=== PATIENT | male | born 1980 | race American Indian/Alaskan Native ===

== ENCOUNTER 2018-01-07 15:36 | Inpatient (IN) | payer MEDICARE, MEDICAID ==
[2018-01-07] VITALS (16 sets, daily range): BP systolic 107–147; BP diastolic 52–87
[~2018-01-07] VITALS: Ht 185.4 cm; Wt 110.9 kg
[2018-01-07] MEDS ORDERED: normal saline 1000ML IV soln IV ONE (15:45)
[2018-01-07] MEDS ORDERED: ondansetron/PF 4mg/2ml inj IV ONE ×2 (15:45→16:35)
[2018-01-07] MEDS ORDERED: normal saline 1000ML IV soln IVB ONE ×2 (15:45→16:35)
[2018-01-07 16:16] LABS: BASOPHILS % (AUTO) 0.2 % (0-1); EOSINOPHILS % (AUTO) 0 % (0-6); HEMATOCRIT 39.1 % (42.0-52.0); HEMOGLOBIN 13.7 g/dl (14.0-17.9); LYMPHOCYTES # (AUTO) 1.4 X10'3 (1.1-4.8); LYMPHOCYTES % (AUTO) 12.1 % (21-51); MEAN CORPUSCULAR HEMOGLOBIN 31.3 PG (27.0-31.0); MEAN CORPUSCULAR VOLUME 89.4 FL (78-98); MONOCYTES # (AUTO) 0.6 X10'3 (0-0.9); MONOCYTES % (AUTO) 5.6 % (2-12); NEUTROPHILS # (AUTO) 9.2 X10'3 (1.8-7.7); NEUTROPHILS % (AUTO) 82.1 % (42-75); PLATELET COUNT 182 X10'3 (140-440); RED BLOOD COUNT 4.37 X10'6 (4.70-6.10); RED CELL DISTRIBUTION WIDTH 13.1 % (11.5-14.5); WHITE BLOOD COUNT 11.2 X10'3 (4.5-11.0)
[2018-01-07 16:35] LABS: ALANINE AMINOTRANSFERASE 29 U/L (12-78); ALBUMIN 3.2 G/DL (3.4-5.0); ALBUMIN/GLOBULIN RATIO 0.7 (1.1-1.5); ALKALINE PHOSPHATASE 44 IU/L (46-116); ANION GAP 11 (8-16); ASPARTATE AMINO TRANSFERASE 18 U/L (10-37); BILIRUBIN,TOTAL 2.6 MG/DL (0.1-1.0); BLOOD UREA NITROGEN 11 MG/DL (7-18); BUN/CREATININE RATIO 8.4 (5.4-32.0); CALCIUM 9.1 MG/DL (8.5-10.1); CHLORIDE 90 MMOL/L (99-107); CREATININE 1.31 MG/DL (0.60-1.10); ETHANOL < 0.010 GM/DL (0.0-0.010); GLUCOSE 129 MG/DL (70-104); LIPASE 94 U/L (73-393); SODIUM 128 MMOL/L (135-145); TOTAL CARBON DIOXIDE 27.4 MMOL/L (24-32); TOTAL PROTEIN 7.9 G/DL (6.4-8.2); eGFR 61 ML/MIN
[2018-01-07 16:39] LABS: POTASSIUM 2.8 MMOL/L (3.5-5.1)
[2018-01-07] MEDS ORDERED: potassium Cl oral solution 20 MEQ/15 ML PO ONE (16:45)
[2018-01-07 17:00] LABS: CLARITY,URINE CLOUDY (Clear); GLUCOSE, URINE 100 mg/dl (Neg); KETONES,URINE TRACE mg/dl (Neg); LEUKOCYTE ESTERASE ,URINE NEGATIVE (Neg); NITRITES, URINE POSITIVE (Neg); OCCULT BLOOD,URINE MODERATE (Neg); PROTEIN,URINE >=300 mg/dl (Neg)
[2018-01-07 17:01] LABS: COLOR,URINE AMBER (Yellow); UA COLLECTION TYPE URINAL
[2018-01-07 17:10] LABS: BACTERIA,URINE 2+ /HPF (Neg)
[2018-01-07 17:11] LABS: COARSE GRANULAR CAST >30 /LPF (NEGATIVE)
[2018-01-07 17:13] LABS: RBC,URINE 0-2 /HPF (0-2)
[2018-01-07 17:14] LABS: SQUAMOUS EPITHELIAL CELL,UR FEW /LPF (FEW)
[2018-01-07 17:15] LABS: URINE AMPHETAMINE SCREEN NEGATIVE (Neg); URINE BARBITUATE SCREEN NEGATIVE (Neg); URINE BENZODIAZEPINES SCREEN NEGATIVE (Neg); URINE CANNABINOID SCREEN POSITIVE (Neg); URINE COCAINE SCREEN NEGATIVE (Neg); URINE METHADONE SCREEN NEGATIVE (Neg); URINE OPIATE SCREEN POSITIVE (Neg); URINE PHENCYCLIDINE SCREEN NEGATIVE (Neg)
[2018-01-07] MEDS ORDERED: CefTRIAXone 2gm/D5W 50ml 50 ML IV ONE ×2 (17:35)
[2018-01-07] MEDS ORDERED: cefepime 1GM/NS ADD-VANTAGE 100 ML IV SCH (17:35)
[2018-01-07] MEDS ORDERED: levoFLOXACIN-Levaquin 750MG/D5 150 ML IV ONE (17:35)
[2018-01-07] MEDS ORDERED: piperacillin/tazo 3.375gm/50ml 50 ML IV ONE (17:50)
[2018-01-07] MEDS ORDERED: ondansetron/PF 4mg/2ml inj IV PRN ×2 (18:00→19:35)
[2018-01-07] MEDS: K and/or MAG REPLACEMENT MC SCH (18:00)
[2018-01-07] MEDS ORDERED: acetaminophen 325mg tablet PO PRN (18:00)
[2018-01-07] MEDS ORDERED: magnesium 4gm in 100ml NS 100 ML IV PRN (18:00)
[2018-01-07] MEDS ORDERED: magnesium hydroxide 30ml (MOM) UD suspension PO PRN (18:00)
[2018-01-07] MEDS ORDERED: HYDROcodone/acetaminophen 5mg/325mg tablet PO PRN (18:00)
[2018-01-07] MEDS ORDERED: potassium Cl 20 mEq SR tablet PO PRN (18:00)
[2018-01-07] MEDS ORDERED: magnesium 1gm/100ml D5W IVPB 100 ML IV PRN (18:00)
[2018-01-07] MEDS ORDERED: potassium Cl 40MEQ/NS 500ml 500 ML IV PRN (18:00)
[2018-01-07] MEDS ORDERED: mag hydrox/Alum hydrox/simeth 30ml oral suspension PO PRN (18:00)
[2018-01-07] MEDS ORDERED: morphine 4 MG/ML inj SYRINge IV PRN ×4 (18:00→19:35)
[2018-01-07] MEDS ORDERED: bisacodyl 10mg suppository rectal RC PRN (18:00)
[2018-01-07] MEDS ORDERED: ARIP15TA8 PO (18:02)
[2018-01-07] MEDS ORDERED: OXCA300T PO (18:02)
[2018-01-07] MEDS ORDERED: HYDR-3972 PO (18:02)
[2018-01-07] MEDS ORDERED: FLUV100T3 PO (18:02)
[2018-01-07] MEDS ORDERED: LORA2TAB PO (18:02)
[2018-01-07] MEDS ORDERED: BACL20TA PO (18:02)
[2018-01-07] MEDS ORDERED: LORazepam 2 mg/ml vial IV PRN (18:05)
[2018-01-07] MEDS ORDERED: non-formulary drug (Lorazepam 1 TAB) PO PRN (18:05)
[2018-01-07] MEDS ORDERED: BUPIVAcaine/PF 2.5mg/ml (0.25%) 10ml vial ONE (18:14)
[2018-01-07] MEDS ORDERED: LIDOcaine 1% 30ml preserv. free vial ONE (18:14)
[2018-01-07] MEDS ORDERED: LORazepam 1 MG tablet PO PRN (18:45)
[2018-01-07] MEDS ORDERED: baclofen 10mg tablet PO PRN (18:50)
[2018-01-07] MEDS ORDERED: sevoflurane 250ml liquid IH ONE (18:59)
[2018-01-07] MEDS ORDERED: midazolam 2 mg/2 ml injection ONE (19:05)
[2018-01-07] MEDS ORDERED: propofol inj 20 ML IV ONE (19:05)
[2018-01-07] MEDS ORDERED: fentaNYL /PF 50mcg/ml 5ml ampule ONE (19:05)
[2018-01-07] MEDS ORDERED: rocuronium 10mg/ml inj IV ONE (19:06)
[2018-01-07] MEDS ORDERED: ringers solution, lacted 1,000 ML IV SCH (19:31)
[2018-01-07] MEDS ORDERED: proCHLORperazine 10 MG/2 ml inj IV PRN (19:35)
[2018-01-07] MEDS ORDERED: meperidine/PF 25mg/ml syringe IV PRN ×3 (19:35)
[2018-01-07] MEDS ORDERED: ePHEDrine 50MG/ML INJ. ONE (19:36)
[2018-01-07] MEDS ORDERED: non-formulary drug (Oxcarbazepine 1 TAB) PO SCH (20:00)
[2018-01-07] MEDS ORDERED: FLUVOXAMINE MALEATE 50 MG PO SCH (20:00)
[2018-01-07] MEDS ORDERED: neostigmine methylsulfate 1 MG/ML 10ml vial ONE (20:18)
[2018-01-07] MEDS ORDERED: glycopyrrolate 0.2mg/ml inj ONE (20:19)
[2018-01-07] MEDS ORDERED: naloxone 0.4 mg/ml inj IV PRN (20:20)
[2018-01-07] MEDS ORDERED: CADD PCA waste documentation MC PRN (20:20)
[2018-01-07] MEDS ORDERED: non-formulary drug (Baclofen 1 TAB) PO SCH (21:00)
[2018-01-07] MEDS: HYDROmorphone/NS 1 mg/ml CADD 50 ML IV SCH ×3 (21:00→23:00)
[2018-01-07 21:30] LABS: ISTAT CREATININE 1.1 mg/dL (0.8-1.3); ISTAT HGB 10.9 g/dl (14.0-18.0); ISTAT IONIZED CALCIUM 1.07 mmol/L (1.03-1.32); ISTAT K 2.9 mmol/L (3.5-5.1); POC BUN/CREATININE RATIO 9.1 (5.4-32.0)
[2018-01-07] MEDS: potassium Cl 40MEQ/NS 500ml 500 ML IV PRN (22:11)
[2018-01-07 22:33] LABS: ALBUMIN 2.3 G/DL (3.4-5.0); ANION GAP 5 (8-16); BLOOD UREA NITROGEN 11 MG/DL (7-18); BUN/CREATININE RATIO 9.2 (5.4-32.0); CALCIUM 7.7 MG/DL (8.5-10.1); CHLORIDE 98 MMOL/L (99-107); GLUCOSE 111 MG/DL (70-104); SODIUM 133 MMOL/L (135-145); TOTAL CARBON DIOXIDE 29.8 MMOL/L (24-32); eGFR 67 ML/MIN
[2018-01-07 22:42] LABS: POTASSIUM 2.9 MMOL/L (3.5-5.1)
[2018-01-07] MEDS: potassium Cl 20mEq in NS 1,000 ML IV SCH (22:49)
[2018-01-07] MEDS: pantoprazole 40 MG vial IV SCH (23:30)
[2018-01-07] MEDS: fluvoxamine 25 MG tablet PO SCH (23:30)
[2018-01-07] MEDS: oxcarbazepine 150mg tablet PO SCH (23:31)
[2018-01-08] VITALS: BP 143/67
[2018-01-08 00:45] VITALS: BP 129/80
[2018-01-08] MEDS: HYDROmorphone/NS 1 mg/ml CADD 50 ML IV SCH ×12 (01:00→23:00)
[2018-01-08 01:45] VITALS: BP 126/78
[2018-01-08] MEDS: piperacillin/tazo 4.5gm/100ml 100 ML IV SCH ×2 (02:59→08:39)
[2018-01-08] MEDS: potassium Cl 20mEq in NS 1,000 ML IV SCH ×3 (03:59→19:21)
[2018-01-08] MEDS: potassium Cl 40MEQ/NS 500ml 500 ML IV PRN (04:09)
[2018-01-08 07:00] VITALS: BP 126/77
[2018-01-08] MEDS: K and/or MAG REPLACEMENT MC SCH (08:00)
[2018-01-08] MEDS ORDERED: non-formulary drug (Aripiprazole 1 TAB) PO SCH (08:00)
[2018-01-08] MEDS: pantoprazole 40 MG vial IV SCH (08:38)
[2018-01-08] MEDS: oxcarbazepine 150mg tablet PO SCH ×2 (08:39→19:23)
[2018-01-08] MEDS: aripiprazole 5mg tablet PO SCH (08:39)
[2018-01-08] MEDS: fluvoxamine 25 MG tablet PO SCH ×2 (08:39→19:22)
[2018-01-08 10:08] LABS: BASOPHILS % (AUTO) 0.2 % (0-1); EOSINOPHILS % (AUTO) 0.1 % (0-6); HEMATOCRIT 30.3 % (42.0-52.0); HEMOGLOBIN 10.5 g/dl (14.0-17.9); LYMPHOCYTES # (AUTO) 0.6 X10'3 (1.1-4.8); LYMPHOCYTES % (AUTO) 10.6 % (21-51); MEAN CORPUSCULAR HEMOGLOBIN 31.4 PG (27.0-31.0); MEAN CORPUSCULAR HGB CONC 34.7 % (33.0-36.5); MEAN CORPUSCULAR VOLUME 90.6 FL (78-98); MEAN PLATELET VOLUME 7.3 FL (7.4-10.4); MONOCYTES # (AUTO) 0.5 X10'3 (0-0.9); MONOCYTES % (AUTO) 7.4 % (2-12); NEUTROPHILS % (AUTO) 81.7 % (42-75); PLATELET COUNT 146 X10'3 (140-440); RED BLOOD COUNT 3.35 X10'6 (4.70-6.10); RED CELL DISTRIBUTION WIDTH 13.2 % (11.5-14.5); WHITE BLOOD COUNT 6.1 X10'3 (4.5-11.0)
[2018-01-08 10:23] LABS: ALANINE AMINOTRANSFERASE 57 U/L (12-78); ALBUMIN/GLOBULIN RATIO 0.6 (1.1-1.5); ALKALINE PHOSPHATASE 46 IU/L (46-116); ANION GAP 9 (8-16); ASPARTATE AMINO TRANSFERASE 66 U/L (10-37); BILIRUBIN,TOTAL 3.1 MG/DL (0.1-1.0); BLOOD UREA NITROGEN 7 MG/DL (7-18); BUN/CREATININE RATIO 7.1 (5.4-32.0); CALCIUM 7.4 MG/DL (8.5-10.1); CHLORIDE 95 MMOL/L (99-107); CREATININE 0.99 MG/DL (0.60-1.10); GLUCOSE 124 MG/DL (70-104); MAGNESIUM 1.4 MG/DL (1.5-2.4); POTASSIUM 3.1 MMOL/L (3.5-5.1); SODIUM 129 MMOL/L (135-145); TOTAL CARBON DIOXIDE 25.4 MMOL/L (24-32); TOTAL PROTEIN 5.6 G/DL (6.4-8.2); eGFR 84 ML/MIN
[2018-01-08] MEDS: magnesium Cl slow-release 64mg tablet PO PRN (10:49)
[2018-01-08] MEDS: potassium Cl 20 mEq SR tablet PO PRN ×2 (10:50→15:01)
[2018-01-08 11:00] VITALS: BP 120/84
[2018-01-08] MEDS: enoxaparin 40mg/0.4ml syringe SUBCUT SCH (15:40)
[2018-01-08] MEDS: levoFLOXACIN-Levaquin 500mg/D5 100 ML IV SCH (15:41)
[2018-01-08] MEDS: metroNIDAZOLE-Flagyl 500mg/NS 100 ML IV SCH (19:22)
[2018-01-08] MEDS: lactobacillus rhamnosus 10,000 MMU CELLS/CAPSULE PO SCH (19:23)
[2018-01-09] VITALS: BP 120/72
[2018-01-09] MEDS: HYDROmorphone/NS 1 mg/ml CADD 50 ML IV SCH ×6 (01:00→11:00)
[2018-01-09] MEDS: potassium Cl 20 mEq SR tablet PO PRN ×4 (01:02→21:57)
[2018-01-09] MEDS: magnesium Cl slow-release 64mg tablet PO PRN (01:02)
[2018-01-09 05:23] LABS: BASOPHILS % (AUTO) 0 % (0-1); EOSINOPHILS % (AUTO) 0.2 % (0-6); HEMATOCRIT 29.4 % (42.0-52.0); HEMOGLOBIN 10.1 g/dl (14.0-17.9); LYMPHOCYTES # (AUTO) 0.7 X10'3 (1.1-4.8); LYMPHOCYTES % (AUTO) 10.4 % (21-51); MEAN CORPUSCULAR HGB CONC 34.4 % (33.0-36.5); MEAN CORPUSCULAR VOLUME 90.1 FL (78-98); MEAN PLATELET VOLUME 7.6 FL (7.4-10.4); MONOCYTES # (AUTO) 0.5 X10'3 (0-0.9); MONOCYTES % (AUTO) 7.9 % (2-12); NEUTROPHILS # (AUTO) 5.3 X10'3 (1.8-7.7); NEUTROPHILS % (AUTO) 81.5 % (42-75); PLATELET COUNT 156 X10'3 (140-440); RED BLOOD COUNT 3.26 X10'6 (4.70-6.10); RED CELL DISTRIBUTION WIDTH 13.3 % (11.5-14.5); WHITE BLOOD COUNT 6.5 X10'3 (4.5-11.0)
[2018-01-09 05:46] LABS: ALANINE AMINOTRANSFERASE 59 U/L (12-78); ALBUMIN/GLOBULIN RATIO 0.5 (1.1-1.5); ALKALINE PHOSPHATASE 56 IU/L (46-116); ANION GAP 6 (8-16); ASPARTATE AMINO TRANSFERASE 42 U/L (10-37); BILIRUBIN,TOTAL 3.2 MG/DL (0.1-1.0); BLOOD UREA NITROGEN 5 MG/DL (7-18); CALCIUM 7.9 MG/DL (8.5-10.1); CHLORIDE 96 MMOL/L (99-107); CREATININE 0.83 MG/DL (0.60-1.10); GLUCOSE 96 MG/DL (70-104); MAGNESIUM 1.6 MG/DL (1.5-2.4); POTASSIUM 3.4 MMOL/L (3.5-5.1); SODIUM 132 MMOL/L (135-145); TOTAL CARBON DIOXIDE 29.9 MMOL/L (24-32); TOTAL PROTEIN 5.7 G/DL (6.4-8.2); eGFR > 90 ML/MIN
[2018-01-09 07:13] VITALS: BP 121/85
[2018-01-09] MEDS: pantoprazole 40 MG vial IV SCH (07:26)
[2018-01-09] MEDS: enoxaparin 40mg/0.4ml syringe SUBCUT SCH (07:27)
[2018-01-09] MEDS: oxcarbazepine 150mg tablet PO SCH ×2 (07:27→19:51)
[2018-01-09] MEDS: aripiprazole 5mg tablet PO SCH (07:28)
[2018-01-09] MEDS: lactobacillus rhamnosus 10,000 MMU CELLS/CAPSULE PO SCH ×2 (07:28→19:51)
[2018-01-09] MEDS: fluvoxamine 25 MG tablet PO SCH ×2 (07:28→19:51)
[2018-01-09] MEDS: metroNIDAZOLE-Flagyl 500mg/NS 100 ML IV SCH ×2 (07:29→19:51)
[2018-01-09] MEDS: potassium Cl 20mEq in NS 1,000 ML IV SCH ×2 (07:31→18:11)
[2018-01-09] MEDS: K and/or MAG REPLACEMENT MC SCH (07:44)
[2018-01-09] MEDS: levoFLOXACIN-Levaquin 500mg/D5 100 ML IV SCH (09:12)
[2018-01-09 11:00] VITALS: BP 132/91
[2018-01-09] MEDS ORDERED: LORazepam 1 MG tablet PO PRN (12:40)
[2018-01-09] MEDS ORDERED: CADD PCA waste documentation MC PRN (14:25)
[2018-01-09] MEDS: HYDROcodone/acetaminophen 10/325mg tab PO PRN ×2 (15:20→19:15)
[2018-01-09 19:00] VITALS: BP 149/80
[2018-01-10] VITALS: BP 141/83
[2018-01-10] MEDS: HYDROcodone/acetaminophen 10/325mg tab PO PRN ×2 (01:03→07:35)
[2018-01-10 05:06] LABS: BASOPHILS % (AUTO) 0.4 % (0-1); HEMOGLOBIN 9.4 g/dl (14.0-17.9)
[2018-01-10 05:11] LABS: EOSINOPHILS % (AUTO) 0.7 % (0-6); HEMATOCRIT 26.9 % (42.0-52.0); LYMPHOCYTES # (AUTO) 1.1 X10'3 (1.1-4.8); LYMPHOCYTES % (AUTO) 18.9 % (21-51); MEAN CORPUSCULAR HEMOGLOBIN 31.8 PG (27.0-31.0); MEAN CORPUSCULAR HGB CONC 34.9 % (33.0-36.5); MEAN CORPUSCULAR VOLUME 91.1 FL (78-98); MEAN PLATELET VOLUME 7.7 FL (7.4-10.4); MONOCYTES # (AUTO) 0.5 X10'3 (0-0.9); MONOCYTES % (AUTO) 8.8 % (2-12); NEUTROPHILS # (AUTO) 4.1 X10'3 (1.8-7.7); NEUTROPHILS % (AUTO) 71.2 % (42-75); PLATELET COUNT 193 X10'3 (140-440); RED BLOOD COUNT 2.95 X10'6 (4.70-6.10); RED CELL DISTRIBUTION WIDTH 12.4 % (11.5-14.5); WHITE BLOOD COUNT 5.7 X10'3 (4.5-11.0)
[2018-01-10] MEDS: potassium Cl 20mEq in NS 1,000 ML IV SCH (05:25)
[2018-01-10 05:29] LABS: ALANINE AMINOTRANSFERASE 40 U/L (12-78); ALBUMIN 1.9 G/DL (3.4-5.0); ALBUMIN/GLOBULIN RATIO 0.5 (1.1-1.5); ALKALINE PHOSPHATASE 56 IU/L (46-116); ANION GAP 5 (8-16); ASPARTATE AMINO TRANSFERASE 11 U/L (10-37); BILIRUBIN,TOTAL 1.2 MG/DL (0.1-1.0); BLOOD UREA NITROGEN 5 MG/DL (7-18); BUN/CREATININE RATIO 5.8 (5.4-32.0); CALCIUM 8.1 MG/DL (8.5-10.1); CHLORIDE 100 MMOL/L (99-107); CREATININE 0.86 MG/DL (0.60-1.10); GLUCOSE 91 MG/DL (70-104); MAGNESIUM 1.7 MG/DL (1.5-2.4); POTASSIUM 3.5 MMOL/L (3.5-5.1); SODIUM 133 MMOL/L (135-145); TOTAL CARBON DIOXIDE 28.2 MMOL/L (24-32); TOTAL PROTEIN 5.6 G/DL (6.4-8.2); eGFR > 90 ML/MIN
[2018-01-10] MEDS: K and/or MAG REPLACEMENT MC SCH (06:47)
[2018-01-10 06:57] VITALS: BP 118/78
[2018-01-10] MEDS: pantoprazole 40 MG vial IV SCH (07:35)
[2018-01-10] MEDS: fluvoxamine 25 MG tablet PO SCH (07:35)
[2018-01-10] MEDS: lactobacillus rhamnosus 10,000 MMU CELLS/CAPSULE PO SCH (07:36)
[2018-01-10] MEDS: metroNIDAZOLE-Flagyl 500mg/NS 100 ML IV SCH (07:36)
[2018-01-10] MEDS: aripiprazole 5mg tablet PO SCH (07:36)
[2018-01-10] MEDS: enoxaparin 40mg/0.4ml syringe SUBCUT SCH (07:36)
[2018-01-10] MEDS: oxcarbazepine 150mg tablet PO SCH (07:36)
[2018-01-10] MEDS: levoFLOXACIN-Levaquin 500mg/D5 100 ML IV SCH (08:43)
[2018-01-10] MEDS ORDERED: METR500T PO (09:26)
[2018-01-10] MEDS ORDERED: POTA20TA19 PO (09:26)
[2018-01-10] MEDS ORDERED: LEVO500T89 PO (09:26)
[2018-01-10 12:11] VITALS: BP 136/89
[2018-01-10] MEDS ORDERED: metroNIDAZOLE 500mg tablet PO SCH (20:00)
[2018-01-11] MEDS ORDERED: pantoprazole 40mg Tablet.DR PO SCH (07:30)
[2018-01-11] MEDS ORDERED: levoFLOXACIN 500mg tablet PO SCH (11:00)
== END 2018-01-10 12:28 | disposition home or self-care (01) | DRG 853 ==
LOC: ER 15:36 → ED HOLD 17:42 → CMPBEDREQ 19:38 → SUR 3N 21:35
PROVIDERS: ADMIT Internal Medicine; ATTEND Family Medicine
PROC: 0FT44ZZ Resection of Gallbladder, Percutaneous Endoscopic Approach (ICD-10-PCS; principal; 2018-01-07 18:59)
DX: A41.9 Sepsis, unspecified organism (principal); K82.2 Perforation of gallbladder; E87.1 Hypo-osmolality and hyponatremia; N39.0 Urinary tract infection, site not specified; K80.00 Calculus of gallbladder with acute cholecystitis without obstruction; F31.9 Bipolar disorder, unspecified; E86.0 Dehydration; E87.6 Hypokalemia; F40.10 Social phobia, unspecified; B95.7 Other staphylococcus as the cause of diseases classified elsewhere; E66.9 Obesity, unspecified; N18.3 Chronic kidney disease, stage 3 (moderate); M54.9 Dorsalgia, unspecified; F12.90 Cannabis use, unspecified, uncomplicated; F17.210 Nicotine dependence, cigarettes, uncomplicated; F41.9 Anxiety disorder, unspecified; G89.29 Other chronic pain; Z90.49 Acquired absence of other specified parts of digestive tract; Z79.899 Other long term (current) drug therapy; Z68.32 Body mass index [BMI] 32.0-32.9, adult
CPT/HCPCS: 36415; 74176; 80047; 80048; 80053; 80305; 80320; 81001; 82948; 83605; 83690; 83735; 84132; 85025; 87040; 87070; 87077; 87088; 87186; 87491; 88304; 93005; 96374; 99285; A7000; C9113; J1170; J1650; J1956; J2175; J2250; J2405; J2543; J2704; J2710; J3010; J3480; J3490; J7030; J7120

== ENCOUNTER 2021-09-02 00:35 | Emergency (ER) | payer MEDICARE, MEDICAID ==
[~2021-09-02] VITALS: Ht 190.5 cm; Wt 113.6 kg
[~2021-09-02 00:35] MED LIST: ARIP15TA19 PO; BACL20TA PO; FLUV100T21 PO; HYDR-3972 PO; LORA2TAB PO; OXCA300T16 PO
--- NOTE | 2021-09-02 00:49 | NUR ---
Pt pink, alert, steady gait. States shortness of breath x 3 weeks, was a smoker for 10 years, 1ppd use. States he has had blood in his stool. Non productive cough with some diarrhea, nausea and vomiting. Pt has had increased gas, belching a lot. Pt has GI scope done for that a month ago.
--- NOTE | 2021-09-02 01:21 | NUR ---
ERP to bedside to evaluate pt. Pt pink, alert, no acute/resp distress.
[2021-09-02] MEDS ORDERED: normal saline 1000ml 1,000 ML IV ONE (01:35)
[2021-09-02 02:16] LABS: BASOPHILS % (AUTO) 0.3 % (0-1); EOSINOPHILS % (AUTO) 0.3 % (0-6); HEMATOCRIT 37.5 % (42.0-52.0); HEMOGLOBIN 12.7 g/dl (14.0-17.9); LYMPHOCYTES # (AUTO) 0.8 X10'3 (1.1-4.8); LYMPHOCYTES % (AUTO) 13.9 % (21-51); MEAN CORPUSCULAR HEMOGLOBIN 29.1 PG (27.0-31.0); MEAN CORPUSCULAR HGB CONC 33.8 g/dL (33.0-36.5); MEAN CORPUSCULAR VOLUME 86.1 FL (78-98); MEAN PLATELET VOLUME 8.2 FL (7.4-10.4); MONOCYTES # (AUTO) 0.3 X10'3 (0-0.9); MONOCYTES % (AUTO) 5.1 % (2-12); NEUTROPHILS # (AUTO) 4.6 X10'3 (1.8-7.7); NEUTROPHILS % (AUTO) 80.4 % (42-75); PLATELET COUNT 234 X10'3 (140-440); RED BLOOD COUNT 4.35 X10'6 (4.70-6.10); RED CELL DISTRIBUTION WIDTH 13.2 % (11.5-14.5); WHITE BLOOD COUNT 5.7 X10'3 (4.5-11.0)
[2021-09-02 02:31] LABS: ALANINE AMINOTRANSFERASE 22 U/L (12-78); ALBUMIN 3.9 G/DL (3.4-5.0); ALBUMIN/GLOBULIN RATIO 1.2 (1.1-1.5); ALKALINE PHOSPHATASE 58 IU/L (46-116); ANION GAP 11 (8-16); ASPARTATE AMINO TRANSFERASE 19 U/L (10-37); BILIRUBIN,TOTAL 0.5 MG/DL (0.1-1.0); BLOOD UREA NITROGEN 10 MG/DL (7-18); BUN/CREATININE RATIO 9.6 (5.4-32.0); CALCIUM 8.7 MG/DL (8.5-10.1); CHLORIDE 98 MMOL/L (99-107); CREATININE 1.04 MG/DL (0.60-1.10); GLUCOSE 148 MG/DL (70-104); POTASSIUM 3.8 MMOL/L (3.5-5.1); SODIUM 133 MMOL/L (135-145); TOTAL CARBON DIOXIDE 24.2 MMOL/L (24-32); TOTAL PROTEIN 7.1 G/DL (6.4-8.2); eGFR 78 ML/MIN
--- NOTE | 2021-09-02 03:24 | NUR ---
Pt pink, alert, no acute/resp distress. PIV site c/d/i s complication or adverse. Bed down in lowest position, wheels locked. Pt laying supine.
[2021-09-02 03:26] LABS: D-DIMER < 0.19 MG/L FEU (0-0.50)
[2021-09-02 04:40] VITALS: BP 143/56
== END 2021-09-02 04:41 | disposition home or self-care (01) ==
LOC: ER 00:36
DX: R06.02 Shortness of breath (principal); R00.0 Tachycardia, unspecified; R11.2 Nausea with vomiting, unspecified; F31.9 Bipolar disorder, unspecified; Z98.890 Other specified postprocedural states; Z79.899 Other long term (current) drug therapy
CPT/HCPCS: 36415; 71045; 80053; 84484; 85025; 85379; 93005; 96360; 99285; J7030

== ENCOUNTER 2022-09-30 21:23 | Emergency (ER) | payer MEDICARE, MEDICAID ==
[~2022-09-30] VITALS: Ht 190.5 cm; Wt 100.2 kg
[2022-09-30 22:36] LABS: BASOPHILS % (AUTO) 0.3 % (0-1); EOSINOPHILS # (AUTO) 0.3 X10'3 (0-0.9); EOSINOPHILS % (AUTO) 2.7 % (0-6); HEMATOCRIT 42.2 % (42.0-52.0); HEMOGLOBIN 14.7 g/dl (14.0-17.9); LYMPHOCYTES # (AUTO) 1.5 X10'3 (1.1-4.8); LYMPHOCYTES % (AUTO) 13.1 % (21-51); MEAN CORPUSCULAR HEMOGLOBIN 31.1 PG (27.0-31.0); MEAN CORPUSCULAR HGB CONC 34.7 g/dL (33.0-36.5); MEAN CORPUSCULAR VOLUME 89.6 FL (78-98); MEAN PLATELET VOLUME 7.4 FL (7.4-10.4); MONOCYTES # (AUTO) 0.6 X10'3 (0-0.9); MONOCYTES % (AUTO) 5.6 % (2-12); NEUTROPHILS # (AUTO) 9.2 X10'3 (1.8-7.7); NEUTROPHILS % (AUTO) 78.3 % (42-75); PLATELET COUNT 205 X10'3 (140-440); RED BLOOD COUNT 4.71 X10'6 (4.70-6.10); RED CELL DISTRIBUTION WIDTH 13.2 % (11.5-14.5); WHITE BLOOD COUNT 11.7 X10'3 (4.5-11.0)
[2022-09-30 22:45] LABS: ALANINE AMINOTRANSFERASE 27 U/L (12-78); ALBUMIN 4.5 G/DL (3.4-5.0); ALBUMIN/GLOBULIN RATIO 1.3 (1.1-1.5); ALKALINE PHOSPHATASE 51 IU/L (46-116); ANION GAP 9 (8-16); ASPARTATE AMINO TRANSFERASE 17 U/L (10-37); BILIRUBIN,TOTAL 0.3 MG/DL (0.1-1.0); BLOOD UREA NITROGEN 25 MG/DL (7-18); BUN/CREATININE RATIO 26.9 (10.0-20.0); CALCIUM 9.6 MG/DL (8.5-10.1); CHLORIDE 100 MMOL/L (99-107); CREATININE 0.93 MG/DL (0.60-1.10); GLUCOSE 124 MG/DL (70-104); LIPASE 269 U/L (73-393); POTASSIUM 4.2 MMOL/L (3.5-5.1); SODIUM 137 MMOL/L (135-145); eGFR 89 ML/MIN
[2022-09-30 23:06] VITALS: BP 151/116
[2022-10-01 00:05] LABS: CLARITY,URINE CLEAR (Clear); COLOR,URINE YELLOW (Yellow); GLUCOSE, URINE NEGATIVE (Neg); KETONES,URINE NEGATIVE (Neg); LEUKOCYTE ESTERASE ,URINE NEGATIVE (Neg); NITRITES, URINE NEGATIVE (Neg); OCCULT BLOOD,URINE NEGATIVE (Neg); PROTEIN,URINE NEGATIVE (Neg); UROBILINOGEN,URINE 0.2 E.U/dL (0.2-1.0)
[2022-10-01 00:10] LABS: UA COLLECTION TYPE CLN CATCH MIDSTREAM
[2022-10-01] MEDS ORDERED: LIDOcaine Viscous 15ml cup MM ONE (00:35)
[2022-10-01] MEDS ORDERED: mag hydrox/Alum hydrox/simeth 30ml oral suspension PO ONE (00:35)
[2022-10-01] MEDS ORDERED: famotidine 20mg tablet PO ONE (00:35)
[2022-10-01] MEDS ORDERED: ondansetron 4mg rapidly disintigrating tab PO ONE (00:35)
[2022-10-01] MEDS ORDERED: pantoprazole 40mg Tablet.DR PO ONE (00:35)
[2022-10-01] MEDS ORDERED: ONDA8TAB13 PO (01:12)
[2022-10-01] MEDS ORDERED: FAMO-128 PO (01:12)
== END 2022-10-01 01:27 | disposition home or self-care (01) ==
LOC: ER 21:25
DX: K29.70 Gastritis, unspecified, without bleeding (principal); K21.9 Gastro-esophageal reflux disease without esophagitis; F31.9 Bipolar disorder, unspecified; Z79.899 Other long term (current) drug therapy
CPT/HCPCS: 36415; 80053; 81003; 83690; 85025; 99284

== ENCOUNTER 2024-09-30 07:12 | Inpatient (IN) | payer MEDICARE, MEDICAID ==
[~2024-09-30] VITALS: Ht 190.5 cm; Wt 90.9 kg
[2024-09-30] VITALS (11 sets, daily range): BP systolic 99–124; BP diastolic 57–79; PULSE 68–96; RESP 14–18; TEMP 97.6–98.5; O2SAT 97–100
[~2024-09-30 07:12] MED LIST changes: -ARIP15TA19 PO; +ARIP15TA68 PO; +FAMO-128 PO; -FLUV100T21 PO; +ONDA-245 PO; +[UNRECOGNIZED DRUG - CODE] PO
--- NOTE | 2024-09-30 07:56 | Physician Documentation ---
History of Present Illness ~ Chief Complaint: Hypertension Stated Complaint: HIGH BLOOD PRESSURE Time Seen by MD: 07:45 Primary Medical Doctor: WHITE HPI 43-year-old male presenting for one week of episodes of lightheadedness and heart palpitations. He also states that he has noticed his blood pressure has been very elevated. He is unsure what is causing this but states that he has been taking a new digestive system supplement to help with his GERD. He states that every day he has had episodes where he will get lightheaded in his heart will race. He has also been taking his blood pressure and it has been elevated into the 180s and 190s systolic. He denies any chest pain, shortness of breath or any other issues. He does have a history of GERD which has not been properly managed and continues to bother him. Medication Reconciliation Allergies: Coded Allergies: No Known Allergies (Unverified , 05/23/09) Scheduled Aripiprazole (Aripiprazole), 1 TAB PO DAILY, (Reported) Baclofen (Baclofen), 1 TAB PO TID, (Reported) Famotidine (Pepcid), 1 TAB PO Q12H Fluvoxamine Maleate (Fluvoxamine Maleate), 50 MG PO BID, (Reported) Ondansetron 8mg ODT (Ondansetron Odt), 1 TAB PO Q6H Oxcarbazepine (Oxcarbazepine), 1 TAB PO BID, (Reported) Scheduled PRN Hydrocodone Bit/Acetaminophen (Hydrocodon-Acetaminophn 10-325 tablet), 1 TAB PO Q4HPRN PRN for pain, (Reported) Lorazepam (Lorazepam), 1 TAB PO TID PRN PRN for for anxiety/agitation, (Reported) Past Medical History Past Medical History: GERD, Bipolar Past Surgical History: orthopedic surgeries Alcohol Use: None Drug Use: none Lives with: Family Lives In: Home Occupation: disabled Review of Systems All Other Systems at this time: Reviewed and Negative Physical Exam Vital Signs: Temperature: 98.9, Source: Oral, Heart Rate: 82, Respiratory Rate: 16, BP: 125/66, Pulse Oximetry: 100, Weight: 90.900 Oxygen Flow Rate: 0 Physical Exam I have reviewed the triage vitals. CONST: Well developed and well nourished. In no acute distress HENT: Head Atraumatic EYES: Pupils are equal, round and reactive to light. Normal conjunctiva NECK: Normal range of motion. Supple. CARDIO: Normal rate and regular rhythm. No murmurs, rubs, or gallops. S1, S2. PULM/CHEST: No respiratory distress. Lungs clear to auscultation. No wheeze ABD: Soft and nontender. Nondistended. Bowel sounds normal. No guarding. : Exam deferred MSK: No edema. No deformity. NEURO: Alert and oriented to person, place and time. Moving all extremities SKIN: Warm and dry. PSYCH: Normal mood and affect. Good eye contact. Progress Results/Orders Results/Orders Orders - ARABELLA DESAI MD Cbc/Diff (09/30/24 07:53) Man Diff (09/30/24 07:59) Pathology Review (09/30/24 07:59) Type And Screen (09/30/24 09:05) Chest,Single View (09/30/24 09:11) Lrpc - Active Bleeding (09/30/24 09:29) Ct Abdomen Pelvis (09/30/24 09:29) Completed Orders - ARABELLA DESAI MD MG (09/30/24 07:53) PBNP (09/30/24 07:53) Electrocardiogram (09/30/24 07:53) Hs Troponin I W Calculations (09/30/24 07:53) BMP (09/30/24 07:53) Chest,Single View (09/30/24 09:11) Ct Abdomen Pelvis (09/30/24 09:29) Normal Saline 500ml Iv Soln (Sodium Chlo (09/30/24 09:30) Iohexol 300mg/Ml 100ml Inj. (Omnipaque-3 (09/30/24 10:30) Medications Received in ER Medications (Trade) Dose Ordered Sig/Sadia Route PRN Reason Start Time Stop Time Status Last Admin Dose Admin Sodium Chloride 500 ml @ 500 mls/hr ONCE ONCE IV 09/30/24 09:30 09/30/24 10:29 DC 09/30/24 10:02 500 MLS/HR Vital Signs 09/30/24 09/30/24 09/30/24 09/30/24 07:18 09:23 10:11 11:44 Temp 98.9 98.5 Pulse 82 79 69 83 Resp 16 20 14 16 B/P (MAP) 125/66 112/54 (73) 114/71 (85) 114/77 Pulse Ox 100 98 100 O2 Flow Rate 0 0 0 09/30/24 11:59 Temp 98.2 Pulse 79 Resp 16 B/P (MAP) 119/74 Laboratory Tests Test 09/30/24 07:59 White Blood Count 3.0 L Red Blood Count 2.13 L Hemoglobin 5.6 *L Hematocrit 16.9 *L Mean Corpuscular Volume 79.4 Mean Corpuscular Hemoglobin 26.1 L Mean Corpuscular Hemoglobin Concent 32.8 L Red Cell Distribution Width 15.1 H Platelet Count 227 Mean Platelet Volume 6.8 L Neutrophils (%) (Auto) 57.3 Lymphocytes (%) (Auto) 31.5 Monocytes (%) (Auto) 7.8 Eosinophils (%) (Auto) 2.5 Basophils (%) (Auto) 0.9 Neutrophils # (Auto) 1.7 L Lymphocytes # (Auto) 1.0 L Monocytes # (Auto) 0.2 Eosinophils # (Auto) 0.1 Basophils # (Auto) 0.0 CBC Comment Differential Total Cells Counted 100 Neutrophils % (Manual) 59.0 Lymphocytes % (Manual) 32.0 Monocytes % (Manual) 6.0 Eosinophils % (Manual) 3.0 Platelet Estimate Normal Red Blood Cell Morphology Perf Hypochromasia 1+ Basophilic Stippling Microcytosis 1+ Sodium Level 139 Potassium Level 4.4 Chloride Level 107 Carbon Dioxide Level 26.4 Anion Gap 6 L Blood Urea Nitrogen 9 Creatinine 0.86 Estimated GFR/1.73 m2 > 90 BUN/Creatinine Ratio 10.5 Glucose Level 103 Calcium Level 8.7 Magnesium Level 2.0 Troponin I High Sensitivity 7 Pro-B-Type Natriuretic Peptide 204 H Albumin 3.4 Chemistry Comments EKG/XRAY/CT/US/VASC/MRI EKG : Additional Comment EKG interpreted by KHADIJAH Desai shows normal sinus rhythm at a rate of 77 normal axis, no IA intervals. No ischemia Chest X-Ray : Additional Comments EXAM: DI CHEST,SINGLE VIEW Indication: SOB Technique: Single frontal view of the chest was obtained Comparison: CHEST,SINGLE VIEW on DOS: 09/02/21 FINDINGS: Lines and Tubes: None Lungs: No focal consolidation. Pleura: No effusion. No pneumothorax. Cardiomediastinal contours: Unremarkable Bones: No acute osseous abnormality. IMPRESSION: No acute cardiopulmonary disease. : Impression Procedure: CT CT ABDOMEN PELVIS W/ IV CONTRAST 09/30/2024 10:38 AM Indication: r/o GI mass - rectal bleeding Comparison Study: None Technique: Axial images were obtained and reformatted in coronal and sagittal planes. All CT scans at this medical facility are performed using dose modulation techniques as appropriate to a performed exam including the following: Automated exposure control was utilized; adjustment of the MA and/or KV according to patient size; and use of iterative reconstruction technique. CT Dose: CTDI volume is 18.3 mGy. Dose-length product is 907 mGy*cm FINDINGS: Lower Chest: Unremarkable. Hepatobiliary: Gallbladder is surgically absent. Mild CBD dilatation, 0.8 cm in caliber most likely compensatory post cholecystectomy change. A 1.4 cm hypodense lesion in the left hepatic lobe, segment IV noted. Spleen: Unremarkable. Pancreas: Unremarkable. Adrenal Glands: Unremarkable. tract: The kidneys are normal in size bilaterally without hydronephrosis or nephrolithiasis. The urinary bladder is unremarkable. GI tract: The stomach is grossly normal in appearance. No evidence of small bowel obstruction. The large bowel is unremarkable. The appendix is not visualized. No inflammatory change is noted in the right lower quadrant. Lymphatics: No mesenteric, retroperitoneal or periportal lymphadenopathy. Vasculature: The abdominal aorta is normal in caliber. Pelvic Organs: Prostate is mildly enlarged. Bones/soft tissues: Degenerative disc disease at L4-L5. A small fat and fluid containing left inguinal hernia is seen the pocket of fluid measuring 2.6 x 1.7 cm. Other: None. IMPRESSION: 1. No CT evidence for acute intra-abdominal or intrapelvic process. Specifically, no evidence of proctocolitis or perianal lesion. 2. Small fat and fluid containing left inguinal hernia. Suggest correlation with ultrasound on a nonemergent basis. 3. Small hypodense left hepatic lobe lesion most likely focal fatty change. Follow-up by ultrasound or multi phasic MRI without and with IV contrast util izing a dedicated hepatic protocol in 6-12 months is recommended. Departure Referrals: NO PRIMARY CARE PROVIDER (PCP) ARABELLA DESAI MD September 30, 2024 07:56
--- NOTE | 2024-09-30 08:01 | ELECTROCARDIOGRAPH REPORT ---
[facility] Test Date: 2024-09-30 Test Time: 07:58:25 Pat Name: ADRIANNA KNOWLES Department: [facility] Patient ID: [facility]-[id number] Room: [facility] Gender: M Report Analyst: : 1980 Requested By: ARABELLA DESAI Order Number: [id number] Reading MD: Dr. Walter Rudd Measurements Intervals [place] Rate: 77 P: 28 WV: 161 QRS: 68 QRSD: 96 T: 47 QT: 386 QTc: 437 Interpretive Statements Sinus rhythm Abnormal R-wave progression, early transition Electronically Signed On 09-30-2024 20:39:[address] Walter Rudd Please click the below link to view image of tracing.
[2024-09-30 08:06] LABS: BASOPHILS % (AUTO) 0.9 % (0-1); EOSINOPHILS # (AUTO) 0.1 X10'3 (0-0.9); EOSINOPHILS % (AUTO) 2.5 % (0-6); LYMPHOCYTES % (AUTO) 31.5 % (21-51); MEAN CORPUSCULAR HEMOGLOBIN 26.1 PG (27.0-31.0); MEAN CORPUSCULAR HGB CONC 32.8 g/dL (33.0-36.5); MEAN CORPUSCULAR VOLUME 79.4 FL (78-98); MEAN PLATELET VOLUME 6.8 FL (7.4-10.4); MONOCYTES # (AUTO) 0.2 X10'3 (0-0.9); MONOCYTES % (AUTO) 7.8 % (2-12); NEUTROPHILS # (AUTO) 1.7 X10'3 (1.8-7.7); NEUTROPHILS % (AUTO) 57.3 % (42-75); PLATELET COUNT 227 X10'3 (140-440); RED BLOOD COUNT 2.13 X10'6 (4.70-6.10); RED CELL DISTRIBUTION WIDTH 15.1 % (11.5-14.5)
[2024-09-30 08:27] LABS: ALBUMIN 3.4 G/DL (3.4-5.0); ANION GAP 6 (8-16); BLOOD UREA NITROGEN 9 MG/DL (7-18); BUN/CREATININE RATIO 10.5 (10.0-20.0); CALCIUM 8.7 MG/DL (8.5-10.1); CHLORIDE 107 MMOL/L (99-107); CREATININE 0.86 MG/DL (0.60-1.10); GLUCOSE 103 MG/DL (70-104); POTASSIUM 4.4 MMOL/L (3.5-5.1); PRO BRAIN NATRIURETIC PEPTIDE 204 PG/ML (0-125); SODIUM 139 MMOL/L (135-145); TOTAL CARBON DIOXIDE 26.4 MMOL/L (24-32); eCRCL 130 ML/MIN; eGFR > 90 ML/MIN
[2024-09-30 08:32] LABS: HEMATOCRIT 16.9 % (42.0-52.0); HEMOGLOBIN 5.6 g/dl (14.0-17.9)
[2024-09-30 09:30] LABS: HYPOCHROMASIA 1+; MICROCYTOSIS 1+; PLATELET ESTIMATE NORMAL; TOTAL CELLS COUNTED 100
--- NOTE | 2024-09-30 09:43 | RADIOLOGY REPORT ---
EXAM: DI CHEST,SINGLE VIEW Indication: SOB Technique: Single frontal view of the chest was obtained Comparison: CHEST,SINGLE VIEW on DOS: 09/02/21 FINDINGS: Lines and Tubes: None Lungs: No focal consolidation. Pleura: No effusion. No pneumothorax. Cardiomediastinal contours: Unremarkable Bones: No acute osseous abnormality. IMPRESSION: No acute cardiopulmonary disease.
[2024-09-30] MEDS: normal saline 500ml IV soln 500 ML IV ONE (10:02)
[2024-09-30] MEDS ORDERED: iohexol 300mg/ml 100ml inj. ONE (10:30)
--- NOTE | 2024-09-30 11:14 | RADIOLOGY REPORT ---
Procedure: CT CT ABDOMEN PELVIS W/ IV CONTRAST 09/30/2024 10:38 AM Indication: r/o GI mass - rectal bleeding Comparison Study: None Technique: Axial images were obtained and reformatted in coronal and sagittal planes. All CT scans at this medical facility are performed using dose modulation techniques as appropriate to a performed e xam including the following: Automated exposure control was utilized; adjustment of the MA and/or KV according to patient size; and use of iterative reconstruction technique. CT Dose: CTDI volume is 18. 3 mGy. Dose-length product is 907 mGy*cm FINDINGS: Lower Chest: Unremarkable. Hepatobiliary: Gallbladder is surgically absent. Mild CBD dilatation, 0.8 cm in caliber most likely c ompensatory post cholecystectomy change. A 1.4 cm hypodense lesion in the left hepatic lobe, segment IV noted. Spleen: Unremarkable. Pancreas: Unremarkable. Adrenal Glands: Unremarkable. tract: The kidneys are normal in size bilaterally without hydronephrosis or nephrolithiasis. The u rinary bladder is unremarkable. GI tract: The stomach is grossly normal in appearance. No evidence of small bowel obstruction. The la rge bowel is unremarkable. The appendix is not visualized. No inflammatory change is noted in the rig ht lower quadrant. Lymphatics: No mesenteric, retroperitoneal or periportal lymphadenopathy. Vasculature: The abdominal aorta is normal in caliber. Pelvic Organs: Prostate is mildly enlarged. Bones/soft tissues: Degenerative disc disease at L4-L5. A small fat and fluid containing left inguina l hernia is seen the pocket of fluid measuring 2.6 x 1.7 cm. Other: None. IMPRESSION: 1. No CT evidence for acute intra-abdominal or intrapelvic process. Specifically, no evidence of proc tocolitis or perianal lesion. 2. Small fat and fluid containing left inguinal hernia. Suggest correlation with ultrasound on a none mergent basis. 3. Small hypodense left hepatic lobe lesion most likely focal fatty change. Follow-up by ultrasound o r multi phasic MRI without and with IV contrast utilizing a dedicated hepatic protocol in 6-12 months is recommended.
[2024-09-30] MEDS ORDERED: ondansetron/PF 4mg/2ml inj IV PRN (15:10)
[2024-09-30] MEDS ORDERED: morphine 2 MG/ML inj. syringe IV PRN ×2 (15:10)
[2024-09-30] MEDS ORDERED: magnesium hydroxide 30ml (MOM) UD suspension PO PRN (15:10)
[2024-09-30] MEDS ORDERED: acetaminophen 325mg tablet PO PRN ×2 (15:10)
[2024-09-30] MEDS ORDERED: mag hydrox/Alum hydrox/simeth 30ml oral suspension PO PRN (15:10)
--- NOTE | 2024-09-30 15:19 | HISTORY AND PHYSICAL ---
History & Physical Providers to CC ~ History of Present Illness Reason for Admit\Complaint: Lightheadedness and generalized weakness History of Present Illness This is a 43 years old male who comes in complaining of lightheadedness over the past week; had no syncopal episode; he has been also generally weak; he has a longstanding history of GERD; his symptoms have not changed lately; denies any use of NSAIDs; he had his last endoscopy in July of this year; never required blood transfusion in the past; patient stated that he has a history of hemorrhoids and he always has blood in the stool; he has not seen any changes with presence of more blood in the stool that normally; he denies any melena Allergies: Coded Allergies: No Known Allergies (Unverified , 05/23/09) Home Medications Home Medications Active Ondansetron Odt (Ondansetron HCl) 8 Mg Tab.rapdis 1 Tab PO Q6H 3 Days Pepcid (Famotidine) 20 Mg Tablet 1 Tab PO Q12H Reported Lorazepam 2 Mg Tablet 1 Tab PO TID PRN PRN Aripiprazole 15 Mg Tablet 1 Tab PO DAILY Baclofen 20 Mg Tablet 1 Tab PO TID Oxcarbazepine 300 Mg Tablet 1 Tab PO BID Fluvoxamine Maleate 100 Mg Tablet 50 Mg PO BID Hydrocodon-Acetaminophn 10-325 tablet (Acetaminophen/Hydrocodone Bitart) 1 Each Tablet 1 Tab PO Q4HPRN PRN Past Medical History Past Medical History GERD Past Surgical History Surgical History Comment Cholecystectomy Appendectomy Past Social History Social History Comment Family history-no family history of diabetes or heart problems Social history-does not smoke or drink; uses cannabis ROS ROS A 10 point review of system was done with pertinent positives and negatives in the history of present illness Exam Vitals: Vital Signs Date Time Temp Pulse Resp B/P (MAP) Pulse Ox O2 Delivery O2 Flow Rate FiO2 09/30/24 14:47 98.0 73 14 116/74 09/30/24 12:31 100 0 General: Patient is in bed in nonacute distress pale looking HEENT normal oral mucosa no JVD no palpable lymph node palpable thyroid eyes with PERRLA Lungs with normal bilateral entry no crackles no wheezing Heart normal rate and rhythm S1-S2 no murmurs Abdomen is soft mild epigastric tenderness no rebound or guarding bowel sounds are present Extremities no edema plus two pulses Awake and alert motor and sensory intact Diagnostic Data Last Recorded Lab Results: 09/30/24 0759 09/30/24 0759 Advance Care Planning Advanced Care plannin - 30 Minutes Additional Plan Patient presents to the hospital with lightheadedness and generalized weakness; found to be anemic; has symptomatic anemia and patient is already receiving blood transfusion emergency room; we will check the anemia workup; Patient with longstanding history of GERD though never received blood transfusion in the past; he has had blood work with his primary care physician he states about four months back we will try to obtain that from [facility]; Protonix 40 mg IV b.i.d.; awaiting phone call back from GI to see if they agree for possible upper plus-minus lower endoscopy Patient states being diagnosed with Beck's esophagus Per discussion with the patient he is a full code; he is admit as an inpatient Date of Service: September 30, 2024 Billing Provider: MIGUELINA BAUER MD Common Visit Codes: [id number] INP/OBS CARE (HIGH) Secondary Visit Codes: [id number] CARE PLAN 30 MINUTES MIGUELINA BAUER MD September 30, 2024 15:19
[2024-09-30] MEDS ORDERED: [UNRECOGNIZED DRUG - CODE] PO (15:29)
[2024-09-30 17:26] LABS: BASOPHILS % (AUTO) 0.3 % (0-1); EOSINOPHILS # (AUTO) 0.1 X10'3 (0-0.9); EOSINOPHILS % (AUTO) 1.3 % (0-6); HEMOGLOBIN 7.2 g/dl (14.0-17.9); LYMPHOCYTES # (AUTO) 1.1 X10'3 (1.1-4.8); LYMPHOCYTES % (AUTO) 26.1 % (21-51); MEAN CORPUSCULAR HEMOGLOBIN 26.1 PG (27.0-31.0); MEAN CORPUSCULAR VOLUME 79.2 FL (78-98); MEAN PLATELET VOLUME 7.2 FL (7.4-10.4); MONOCYTES # (AUTO) 0.3 X10'3 (0-0.9); MONOCYTES % (AUTO) 7.9 % (2-12); NEUTROPHILS # (AUTO) 2.6 X10'3 (1.8-7.7); NEUTROPHILS % (AUTO) 64.4 % (42-75); PLATELET COUNT 232 X10'3 (140-440); RED BLOOD COUNT 2.77 X10'6 (4.70-6.10); RED CELL DISTRIBUTION WIDTH 15.5 % (11.5-14.5)
[2024-09-30 17:40] LABS: HEMATOCRIT 21.9 % (42.0-52.0)
[2024-09-30] MEDS: docusate sod 100mg capsule PO SCH (19:41)
[2024-09-30] MEDS: pantoprazole 40 MG vial IV SCH (19:41)
[2024-09-30] MEDS: HYDROcodone/acetaminophen 5mg/325mg tablet PO PRN (22:35)
[2024-10-01] VITALS (24 sets, daily range): BP systolic 85–124; BP diastolic 51–86; PULSE 54–96; RESP 10–22; TEMP 97.1–98.4; O2SAT 96–100
[2024-10-01 05:51] LABS: ALBUMIN 3.4 G/DL (3.4-5.0); ANION GAP 4 (8-16); BLOOD UREA NITROGEN 11 MG/DL (7-18); BUN/CREATININE RATIO 12.5 (10.0-20.0); CALCIUM 8.5 MG/DL (8.5-10.1); CHLORIDE 108 MMOL/L (99-107); CREATININE 0.88 MG/DL (0.60-1.10); GLUCOSE 85 MG/DL (70-104); POTASSIUM 4.2 MMOL/L (3.5-5.1); SODIUM 140 MMOL/L (135-145); TOTAL CARBON DIOXIDE 27.6 MMOL/L (24-32); eCRCL 127 ML/MIN; eGFR > 90 ML/MIN
[2024-10-01 05:55] LABS: BASOPHILS % (AUTO) 0.8 % (0-1); EOSINOPHILS # (AUTO) 0.1 X10'3 (0-0.9); EOSINOPHILS % (AUTO) 3.3 % (0-6); HEMOGLOBIN 7.2 g/dl (14.0-17.9); LYMPHOCYTES # (AUTO) 1.3 X10'3 (1.1-4.8); LYMPHOCYTES % (AUTO) 33.5 % (21-51); MEAN CORPUSCULAR HEMOGLOBIN 26.5 PG (27.0-31.0); MEAN CORPUSCULAR HGB CONC 33.5 g/dL (33.0-36.5); MEAN PLATELET VOLUME 7.3 FL (7.4-10.4); MONOCYTES # (AUTO) 0.4 X10'3 (0-0.9); MONOCYTES % (AUTO) 10.5 % (2-12); NEUTROPHILS % (AUTO) 51.9 % (42-75); PLATELET COUNT 206 X10'3 (140-440); RED BLOOD COUNT 2.71 X10'6 (4.70-6.10); RED CELL DISTRIBUTION WIDTH 15.7 % (11.5-14.5); WHITE BLOOD COUNT 3.8 X10'3 (4.5-11.0)
[2024-10-01 06:03] LABS: HEMATOCRIT 21.4 % (42.0-52.0)
[2024-10-01 09:12] LABS: INR 1.1 INR; PROTHROMBIN TIME 11.5 SECONDS (9.0-12.0)
[2024-10-01 09:20] LABS: APTT 25 SECONDS (22-32)
[2024-10-01] MEDS ORDERED: MIDAZolam 1 MG/ML 5ML VIAL ONE (13:24)
[2024-10-01] MEDS ORDERED: fentaNYL/PF 50MCG/1 ML 2ML syringe ONE (13:24)
[2024-10-01] MEDS ORDERED: LIDOcaine 2% Viscous 15ml cup ONE (13:24)
--- NOTE | 2024-10-01 15:53 | PROGRESS NOTE- Residence ---
Progress Note - Resident Providers to CC Resident Creating Document: CHRISTINA SANTOYO RES ~ Antibiotic Timeout Antibiotic Ordered?: No Subjective Patient was seen at the bedside this morning without having anymore GI bleeding after admission. He does not complain about any abdominal pain and nausea with vomiting. He will be having the upper endoscopy by GI specialist today. Objective Vital Signs Date Time Temp Pulse Resp B/P (MAP) Pulse Ox O2 Delivery O2 Flow Rate FiO2 10/01/24 14:40 62 15 99/61 100 Room Air 10/01/24 14:00 2.5 10/01/24 10:00 98.4 Result Diagram: 10/01/24 0522 10/01/24 0522 Vitals were stable at the moment with BP 100/55 mm Hg, MN 58, SpO2 97%, on room air. General: Well alert, well oriented, not confused, not agitated, not in acute distress, well cooperated during the physical. HEENT: Conjunctive are pink, sclerae clear, no icterus, pupil is equal in both sides, reactive to light, no ear discharge, no pharyngeal erythema or an edema, mouth and lips are moist. Neck: Supple, no JVD, no lymphadenopathy and thyromegaly. 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 neurological deficits, no motor and sensory weakness in all 4 extremities, could move all 4 extremities Musculoskeletal: No joint swelling, deformities, inflammations, and no scoliosis and back tenderness Skin: No active skin lesions and rashes Coagulation Studies Laboratory Tests Test 10/01/24 08:30 Prothrombin Time 11.5 SECONDS (9.0-12.0) INR International Normalized Ratio 1.1 INR Activated Partial Thromboplast Time 25 SECONDS (22-32) Coagulation Comments Assessment Assessment A 43 years old male with a past medical history of longstanding GERD with a possible diagnosis of Beck's esophagus, chronic hemorrhoids causing hematochezia, s/p cholecystectomy and appendicectomy presented to ER with lightheadedness and generalized weakness over a week. He denies using any NSAIDs and hematemesis and melena. Last endoscopy in July 2024. Plan Plan # symptomatic anemia from GI bleed # chronic GERD # history of Beck esophagus -hemoglobin stabilized around 7.2 after receiving 2 units of A+ blood transfusion -vitals stable with BP 100/60 mm Hg, heart rate 60/minute. -FOBT pending -CTA P W/IV contrast on 09/30/2024 showed no acute intra-abdominal/intrapelvic process, protein colitis or perianal lesion. Suggestive for left inguinal hernia small left hypodense hepatic lobe lesion most likely fatty liver suggestive for ultrasound on multiphasic MRI without and with IV contrast in 6- 12 months. -continue IV Protonix 40 mg b.i.d., plan to switch to p.o. esomeprazole on discharge as patient can not tolerate with the oral Protonix siphon with nausea -proceed with upper GI scope/EGD and as per GI consultation and recommendation. -advance diet as GI consultation and monitor CBC for Hb # hypochromic normocytic/dimorphic anemia # nonspecific leukopenia -WBC 3.8 most probably from the fluid dilution effect -dimorphic features of anemia could be anemia of chronic disease/ acute blood loss and JOE -daily CBC monitoring, plan to repeat blood transfusion if hemoglobin <7 CODE STATUS: Full code DVT prophylaxis: SCDs until fully ambulatory Analgesia/sedation: Tylenol Lines/tubes: Peripheral IV GI prophylaxis: Pantoprazole Nutrition: NPO--> advanced diet as per GI recommendation Prognosis: Guarded Disposition: Continue medical management, advance diet as per EGD and GI recommendation, PT eval and DC plan. Resident MD attestation: Patient was seen and examined with attending MD, Dr. Nicolas SANTOYO MD Internal Medicine Resident, PGY2 [facility] Date of Service: October 01, 2024 Billing Provider: MIGUELINA BAUER MD Common Visit Codes: [id number] INP/OBS CARE(HIGH) CHRISTINA SANTOYO, RES October 01, 2024 15:53 MIGUELINA BAUER MD October 01, 2024 21:10
[2024-10-01] MEDS: fluvoxamine 25 MG tablet PO SCH (20:29)
[2024-10-02] VITALS (7 sets, daily range): BP systolic 95–119; BP diastolic 55–76; PULSE 60–91; RESP 14–19; TEMP 97.5–98.1; O2SAT 99–100
[2024-10-02 06:39] LABS: BASOPHILS % (AUTO) 0.4 % (0-1); EOSINOPHILS # (AUTO) 0.1 X10'3 (0-0.9); EOSINOPHILS % (AUTO) 3.2 % (0-6); HEMATOCRIT 24.4 % (42.0-52.0); LYMPHOCYTES % (AUTO) 25.6 % (21-51); MEAN CORPUSCULAR HEMOGLOBIN 25.9 PG (27.0-31.0); MEAN CORPUSCULAR HGB CONC 32.8 g/dL (33.0-36.5); MEAN CORPUSCULAR VOLUME 78.9 FL (78-98); MEAN PLATELET VOLUME 7.2 FL (7.4-10.4); MONOCYTES # (AUTO) 0.2 X10'3 (0-0.9); MONOCYTES % (AUTO) 6.7 % (2-12); NEUTROPHILS # (AUTO) 2.4 X10'3 (1.8-7.7); NEUTROPHILS % (AUTO) 64.1 % (42-75); PLATELET COUNT 230 X10'3 (140-440); RED BLOOD COUNT 3.09 X10'6 (4.70-6.10); RED CELL DISTRIBUTION WIDTH 15.9 % (11.5-14.5); WHITE BLOOD COUNT 3.7 X10'3 (4.5-11.0)
[2024-10-02 07:00] LABS: ALBUMIN 3.7 G/DL (3.4-5.0); ANION GAP 6 (8-16); BLOOD UREA NITROGEN 14 MG/DL (7-18); BUN/CREATININE RATIO 15.7 (10.0-20.0); CALCIUM 8.9 MG/DL (8.5-10.1); CHLORIDE 106 MMOL/L (99-107); CREATININE 0.89 MG/DL (0.60-1.10); GLUCOSE 96 MG/DL (70-104); POTASSIUM 4.1 MMOL/L (3.5-5.1); SODIUM 139 MMOL/L (135-145); TOTAL CARBON DIOXIDE 27.4 MMOL/L (24-32); eCRCL 125 ML/MIN; eGFR > 90 ML/MIN
[2024-10-02] MEDS ORDERED: ESOM20CA59 PO (10:45)
[2024-10-02] MEDS ORDERED: DOCU100C40 PO (10:45)
--- NOTE | 2024-10-02 14:23 | DISCHARGE SUMMARY-Residence ---
Discharge Summary Providers to CC Resident Creating Document: CHRISTINA SANTOYO, RES ~ Discharge Summary Admission Diagnosis: symptomatic anemia Hospital Course DATE OF ADMISSION: 09/30/24 DATE OF DISCHARGE: 10/02/24 Discharge Diagnosis\Comment: # symptomatic anemia from GI bleed possibly from the bleeding hemorrhoids- transfused 3 units of A+ PRBCs # chronic GERD # history of Beck esophagus # hypochromic normocytic/dimorphic anemia # nonspecific leukopenia Operations\Procedures: EGD by GI Dr Viveros Consultants: GI Dr Viveros Complications: None Condition on DC: Stable New Medications: Esomeprazole Magnesium (Nexium 24Hr) 20 Mg Capsule.dr 2 CAP PO BID for acid reflux for 30 Days, #120 CAP 0 Refills Docusate Sodium (Docusate Sodium) 100 Mg Caps 100 MG PO BID for 30 Days, #60 CAP Continued Medications: Fluvoxamine Maleate (Fluvoxamine Maleate) 100 Mg Tablet 1 TAB PO HS for 30 Days, #30 TAB 0 Refills Discharge Summary: A 43 years old male with a past medical history of longstanding GERD with a possible diagnosis of Beck's esophagus, chronic hemorrhoids causing hematochezia, s/p cholecystectomy and appendicectomy presented to ER with lightheadedness and generalized weakness over a week. He denies using any NSAIDs and hematemesis and melena. Last endoscopy in July 2024 showing mild gastritis and colonoscopy showed bleeding hemorrhoids with rectal prolapse. CTA P W/IV contrast on 09/30/2024 showed no acute intra-abdominal/intrapelvic process, protein colitis or perianal lesion. Suggestive for left inguinal hernia small left hypodense hepatic lobe lesion most likely fatty liver suggestive for ultrasound on multiphasic MRI without and with IV contrast in 6- 12 months. Hospital course: The patient was admitted to the hospital for his severely symptomatic anemia from the GI bleeding possible bleeding per rectum/bleeding hemorrhoids with hemoglobin 5.6 and lightheadedness. His hemoglobin stabilized around 7.2 after receiving 2 units of A+ blood transfusion. His vitals were stabled with BP 100/60 mm Hg, heart rate 60/minute. CT AP W/IV contrast on 09/30/2024 showed no acute intra-abdominal/intrapelvic process, protein colitis or perianal lesion. Suggestive for left inguinal hernia small left hypodense hepatic lobe lesion most likely fatty liver suggestive for ultrasound on multiphasic MRI without and with IV contrast in 6-12 months. We continued IV Protonix 40 mg b.i.d and he was given IV bolus 0.9% sodium chloride 50 mL bolus in ER. He has hypochromic amna rocytic and normocytic dimorphic anemia most probably from anemia of chronic disease/ acute blood loss and JOE. The EGD was done by Dr Viveros on 10/01/24 showing the Grade B reflux esophagitis from the GERD, mild gastritis, and no active bleeding site, and biopsy was taken. His current hemoglobin was stabilized around eight today, he was given another 1 unit of a positive PRBC's transfusion before he goes home. All of the questions and concerns were addressed with the best knowledge of our team before he was discharged. Today, all of the labs were reviewed which are normalizing with a WBC 3.7, hemoglobin 8, hematocrit 24.4, serum sodium 139, potassium 4.1, BUN 14 and creatinine 0.89 with a proBNP 204. all of his vitals were stable at the moment with temp 97.7 F, OH 70/minute, RR 15/minute, BP 100/55 mm Hg and pulse oximetry 100% on room air. On exam, General: Well alert, well oriented, not confused, not agitated, not in acute distress, well cooperated during the physical. HEENT: Conjunctive are pale, sclerae clear, no icterus, pupil is equal in both sides, reactive to light, no ear discharge, no pharyngeal erythema or an edema, mouth and lips are moist. Neck: Supple, no JVD, no lymphadenopathy and thyromegaly. Lungs:Equal air entry on both lungs, no additional sounds Heart: S1-S2 regular sinus rhythm and, regular rate, no gallops, no rubs, no murmurs Abdomen: No visible peristalsis, Bowel sounds present on auscultation, soft, nontender, no guarding, no rigidity Extremities: No obvious deformities, no pitting edema bilaterally, capillary refill intact, able to wiggle toes both sides, peripheral pulsations are intact on both sides CELL MAKER: No focal neurological deficits, no motor and sensory weakness in all 4 extremities, could move all 4 extremities Musculoskeletal: No joint swelling, deformities, inflammations, and no scoliosis and back tenderness Skin: No active skin lesions and rashes Discharge instructions: -immediate return to the ER for the emergency situations including uncontrolled bleeding per rectum and painful rectal prolapse fainting and passing out chest pain and intense fatigue and weakness, etc - follow up with Colorectal surgery for the prolapse rectum and hemorrhoids for the chronic bleeding with Dr Sullivan in 1-2 weeks after discharge -follow up with PCP and GI for the further management including GERD and grade B reflux esophagitis and recheck CBC and Hemoglobin for the possilbe replacement blood transfusion if necessary -Continue PO Nexium 40 mg BID for a month and switch into 40 mg once daily for another month and followed by as needed -avoid constipation, bowel movement straining, and GERD exaggerated food including Spicy hot tomatoes wine and alcohol etc -fatty liver suggestive for ultrasound on multiphasic MRI without and with IV contrast in 6-12 months. Resident MD attestation: Patient was seen and examined with attending MD, Dr. Nicolas SANTOYO MD Internal Medicine Resident, PGY2 [facility] *Problems/Diagnosis: (1) Gastritis Status: Chronic (2) Symptomatic anemia Status: Resolved Total Time Spent on D/C: > 30 Minutes Date of Service: October 02, 2024 Billing Provider: MIGUELINA BAUER MD Common Visit Codes: 48178-VMP/OBS DISCH DAY >30min CHRISTINA SANTOYO, RES October 02, 2024 14:22 MIGUELINA BAUER MD October 02, 2024 20:56
--- NOTE | 2024-10-04 18:48 | PATHOLOGY REPORT ---
[facility] [address] [place] [address] SURGICAL PATHOLOGY REPORT CaseNumber: [id number] Surgeon:Haris Guzman NP CLINICAL INFORMATION CLINICAL INFORMATION: Iron deficiency anemia secondary to chronic blood loss, esophageal reflux, susp ected Beck's esophagus. DIAGNOSIS DIAGNOSIS: ESOPHAGUS, DISTAL; BIOPSY - SQUAMOGLANDULAR JUNCTIONAL MUCOSA WITH MODERATE CHRONIC INFLAMMATORY CHANGES. - EOSINOPHILIC ESOPHAGITIS. - FOCAL INTESTINAL METAPLASIA. - NEGATIVE FOR DYPLASIA/NEOPLASIA. MICROSCOPIC DESCRIPTION MICROSCOPIC DESCRIPTION: One H&E stained slide is examined. Present is squamoglandular junctional muc harini. There is a moderate chronic inflammatory infiltrate centered in the gastric cardia mucosa compos ed of lymphocytes, plasma cells, and eosinophils. The esophagus shows mild to moderate basilar hyperp lasia and increased stromal peg height. There is a significant intraepithelial eosinophilic populatio n greater than 30 per high power field qualifying as "eosinophilic esophagitis". There is a focal gob let cell "intestinal" metaplasia, confirmed with Alcian Blue/PAS stain. There is mild glandular epith elial atypia which matures with ascent consistent with reactive/regenerative atypia. (bb) GROSS DESCRIPTION GROSS DESCRIPTION: Received in a container of formalin labeled with the patient's name, number, and " distal esophagus" are multiple pieces of fernandez-martinez tissue 0.2-0.5 x 0.2 x 0.1 cm. The specimen is enti rely submitted as A1. The time at which the specimen was removed was 1358. The time at which the spec imen was placed in formalin was 1400. Electronically signed by: Mason Valentino M.D. 10/04/2024 6:16:00 PM
== END 2024-10-02 16:05 | disposition home or self-care (01) | DRG 368 ==
LOC: ER 07:13 → ED HOLD 15:13 → ORTHO 4S 16:45
PROVIDERS: ADMIT Internal Medicine; ATTEND Internal Medicine
PROC: 30233N1 Transfusion of Nonautologous Red Blood Cells into Peripheral Vein, Percutaneous Approach (ICD-10-PCS; principal; 2024-09-30)
PROC: 0DB48ZX Excision of Esophagogastric Junction, Via Natural or Artificial Opening Endoscopic, Diagnostic (ICD-10-PCS; 2024-10-01)
PROC: 0DB68ZX Excision of Stomach, Via Natural or Artificial Opening Endoscopic, Diagnostic (ICD-10-PCS; 2024-10-01)
DX: K21.01 Gastro-esophageal reflux disease with esophagitis, with bleeding (principal); K29.71 Gastritis, unspecified, with bleeding; K64.8 Other hemorrhoids; D50.8 Other iron deficiency anemias; F31.9 Bipolar disorder, unspecified; K44.9 Diaphragmatic hernia without obstruction or gangrene; D72.819 Decreased white blood cell count, unspecified; I10 Essential (primary) hypertension; Z79.899 Other long term (current) drug therapy
CPT/HCPCS: 36415; 36430; 43239; 71045; 74177; 80048; 83735; 83880; 84484; 85007; 85025; 85610; 85730; 86885; 86900; 86901; 86920; 87081; 93005; 96374; 99152; 99285; A4620; G0378; J2250; J2470; J3010; J7030; J7040; P9016; Q9967